=== PATIENT | male | born 1930 | race Caucasian/White ===

== ENCOUNTER 2017-08-24 12:24 | Day surgery (SDC) | payer OTHER ==
[~2017-08-24] VITALS: Ht 177.8 cm; Wt 92.7 kg
[~2017-08-24 12:24] MED LIST: ALEVE220 MG; ASPI81CH PO; CEPH500 PO; Hair, Skin & N1 EACH; LEVSOD125
== END 2017-08-24 17:20 | disposition home or self-care (01) ==
LOC: ORSCSDS 12:24
PROVIDERS: Internal Medicine Gastroenterology
PROC: 0DB98ZX Excision of Duodenum, Via Natural or Artificial Opening Endoscopic, Diagnostic (ICD-10-PCS; principal; 2017-08-24 13:45)
PROC: 0DB68ZX Excision of Stomach, Via Natural or Artificial Opening Endoscopic, Diagnostic (ICD-10-PCS; principal; 2017-08-24 13:45)
PROC: 0DBE8ZX Excision of Large Intestine, Via Natural or Artificial Opening Endoscopic, Diagnostic (ICD-10-PCS; principal; 2017-08-24 13:45)
DX: R19.7 Diarrhea, unspecified (principal); D12.2 Benign neoplasm of ascending colon; D12.3 Benign neoplasm of transverse colon; D12.4 Benign neoplasm of descending colon; D12.5 Benign neoplasm of sigmoid colon; K64.8 Other hemorrhoids; K29.50 Unspecified chronic gastritis without bleeding; R19.5 Other fecal abnormalities; K57.30 Diverticulosis of large intestine without perforation or abscess without bleeding; Z86.010 Personal history of colon polyps; Z87.891 Personal history of nicotine dependence; Z79.899 Other long term (current) drug therapy
CPT/HCPCS: 87081; 88305; 88342; J1980; J7120

== ENCOUNTER → 2017-10-20 | Outpatient (CLI) | payer OTHER | END | disposition home or self-care (01) | LOC: PLD 08:04 → LAB SHORT 08:04 | DX: D04.62 Carcinoma in situ of skin of left upper limb, including shoulder (principal); C44.229 Squamous cell carcinoma of skin of left ear and external auricular canal | CPT/HCPCS: 88305 ==

== ENCOUNTER → 2018-12-28 | Outpatient (CLI) | payer OTHER | END | disposition home or self-care (01) | LOC: LAB SHORT 12:42 → LAB 12:42 | DX: R22.41 Localized swelling, mass and lump, right lower limb (principal); M10.9 Gout, unspecified | CPT/HCPCS: 84550 ==